=== PATIENT | male | born 1995 | race Two or more races ===

== ENCOUNTER 2021-03-17 13:06 | Inpatient (IN) | payer MEDICAID, OTHER ==
[2021-03-17] VITALS (24 sets, daily range): BP systolic 81–111; BP diastolic 31–56
[~2021-03-17] VITALS: Ht 180.3 cm; Wt 106.8 kg
[2021-03-17] MEDS ORDERED: SODIUM CHLORIDE 0.9% 1,000 ML IVB ONE (13:45)
[2021-03-17 14:25] LABS: Basophils # (auto) 0 10 ^3/uL (0-0.2); Eosinophils # (auto) 0 10 ^3/uL (0-0.8); Hemoglobin 13.3 g/dL (13.5-17.5); Lymphocytes # (auto) 0.5 10 ^3/uL (0.4-5.4); Mean Corpuscular Hemoglobin 36.1 pg (28.0-32.0); Mean Corpuscular Hgb Conc. 34.3 g/dL (32.0-36.0); Monocytes # (auto) 0 10 ^3/uL (0-1.3); Neutrophils # (auto) 0.2 10 ^3/uL (1.6-8.6)
[2021-03-17 14:27] LABS: Basophils % (auto) 0.6 % (0.0-2.0); Eosinophils % (auto) 2.6 % (0.0-7.0); Hematocrit 38.7 % (41.0-53.0); Mean Corpuscular Volume 105.3 fL (80.0-100.0); Monocytes % (auto) 1.3 % (0.0-12.0); Neutrophils % (auto) 25.3 % (37.0-80.0); Platelet Count (auto) 41 10^3/uL (140-450); Red Blood Cells 3.67 10^6/uL (4.5-5.90); Red Cell Distribution Width 14.4 % (11.8-14.3)
[2021-03-17 14:32] LABS: Lymphocytes % (auto) 70.2 % (10.0-50.0)
[2021-03-17 14:37] LABS: White Blood Cell 0.7 10^3/uL (4.4-10.8)
[2021-03-17] MEDS ORDERED: ONDANSETRON HCL 4 MG/2 ML VIAL ONE (14:41)
[2021-03-17 14:44] LABS: Albumin 2.4 g/dL (3.4-5.0); Calcium 7.9 mg/dL (8.5-10.1); Magnesium 1.7 mg/dL (1.6-2.6); Potassium 3.2 mmol/L (3.5-5.1)
[2021-03-17 14:47] LABS: BUN/Creatinine Ratio 26.3; Bilirubin, Total 0.9 mg/dL (0.2-1.0); Total Protein 4.9 g/dL (6.4-8.2)
[2021-03-17 14:48] LABS: INR 1.36 (0.9-1.15); Partial Thromboplastin Time 30.2 sec (23.0-31.2)
[2021-03-17] MEDS ORDERED: PANTOPRAZOLE 40 MG/10 ML VIAL INJ IV ONE (15:30)
[2021-03-17] MEDS ORDERED: ONDANSETRON HCL 4 MG/2 ML VIAL IV ONE (15:30)
[2021-03-17] MEDS ORDERED: NOREPINEPHRINE 8 MG/250ML KIT 250 ML IV ONE ×2 (16:42→17:05)
[2021-03-17] MEDS ORDERED: VANCOMYCIN PER PHARMACY 0 MG IV SCH (17:00)
[2021-03-17] MEDS ORDERED: NITROGLYCERIN 0.4 MG SL TAB SL PRN (17:00)
[2021-03-17] MEDS ORDERED: D5W/LACTATED RINGERS 1,000 ML IV SCH (17:00)
[2021-03-17] MEDS ORDERED: ONDANSETRON HCL 4 MG/2 ML VIAL IV PRN (17:00)
[2021-03-17] MEDS ORDERED: NOREPINEPHRINE 8 MG/250ML KIT 250 ML IV SCH ×2 (17:00)
[2021-03-17] MEDS ORDERED: MORPHINE SULF INJ 2 MG/ML SYRINGE 1ML IV PRN (17:00)
[2021-03-17] MEDS ORDERED: VANCOMYCIN 1GM/250ML 250 ML IV ONE (17:30)
[2021-03-17] MEDS: MAGNESIUM SULFATE 1GM/100ML 100 ML IV SCH ×3 (19:00→23:55)
[2021-03-17] MEDS: POTASSIUM CHL 20MEQ/100ML 100 ML IV SCH ×2 (19:00→21:57)
[2021-03-17] MEDS ORDERED: DEXA4TAB PO (19:39)
[2021-03-17] MEDS ORDERED: GABA-339 PO (19:39)
[2021-03-17] MEDS ORDERED: FLUC200T50 PO (19:39)
[2021-03-17] MEDS ORDERED: CALC500C3 PO (19:39)
[2021-03-17] MEDS ORDERED: AMIT10TA6 PO (19:39)
[2021-03-17] MEDS ORDERED: MAGN84TA4 PO (19:44)
[2021-03-17] MEDS ORDERED: INSU100I43 SC (19:44)
[2021-03-17] MEDS ORDERED: OLAN1TAB19 PO (19:44)
[2021-03-17] MEDS ORDERED: LORA0.5T20 PO (19:44)
[2021-03-17] MEDS ORDERED: INSLANTI SC (19:44)
[2021-03-17] MEDS ORDERED: MERC50TA PO (19:44)
[2021-03-17] MEDS ORDERED: LEVO-253 PO (19:44)
[2021-03-17] MEDS ORDERED: ONDA-144 PO (19:47)
[2021-03-17] MEDS ORDERED: POTA10TA51 PO (19:47)
[2021-03-17] MEDS ORDERED: URSO300C9 PO (19:47)
[2021-03-17] MEDS ORDERED: POLY33504 PO (19:47)
[2021-03-17] MEDS ORDERED: SUM25T PO (19:47)
[2021-03-17] MEDS ORDERED: OXY5T PO (19:47)
[2021-03-17] MEDS ORDERED: PANT40TA2 PO (19:47)
[2021-03-17] MEDS: FAMOTIDINE (10MG/ML) 2ML VL IV SCH (21:11)
[2021-03-17] MEDS: PIPERACILLIN-TAZOB 3.375GM 100 ML IV SCH (21:11)
[2021-03-17] MEDS ORDERED: DEXTROSE (50%) 50ML SYRG IV PRN (22:45)
[2021-03-17 22:51] LABS: Lactic Acid w/Reflex 4.1 mmol/L (0.4-2.0)
[2021-03-17] MEDS: LACTATED RINGER'S 1,000 ML IV SCH (23:13)
[2021-03-18] VITALS (53 sets, daily range): BP systolic 86–134; BP diastolic 43–83
[2021-03-18] MEDS: ACCU-CHEK COMFORT CURVE STRIP VI SCH ×5 (00:07→23:44)
[2021-03-18] MEDS ORDERED: MAGNESIUM SULFATE 1GM/100ML 100 ML IV ONE (00:29)
[2021-03-18] MEDS: MAGNESIUM SULFATE 1GM/100ML 100 ML IV SCH (00:37)
[2021-03-18] MEDS: KETOROLAC TROMETH 30 MG/ML 1ML VIAL IV PRN ×2 (01:23→23:47)
[2021-03-18] MEDS ORDERED: ONDANSETRON HCL 4 MG/2 ML VIAL IV PRN (03:15)
[2021-03-18] MEDS: PIPERACILLIN-TAZOB 3.375GM 100 ML IV SCH ×4 (03:27→20:34)
[2021-03-18] MEDS: NOREPINEPHRINE 8 MG/250ML KIT 250 ML IV SCH (03:28)
[2021-03-18 04:24] LABS: Basophils # (auto) 0 10 ^3/uL (0-0.2); Basophils % (auto) 0.3 % (0.0-2.0); Eosinophils # (auto) 0 10 ^3/uL (0-0.8); Eosinophils % (auto) 2.2 % (0.0-7.0); Hematocrit 41.3 % (41.0-53.0); Hemoglobin 14.2 g/dL (13.5-17.5); Lymphocytes # (auto) 0.3 10 ^3/uL (0.4-5.4); Lymphocytes % (auto) 35.7 % (10.0-50.0); Mean Corpuscular Hemoglobin 35.7 pg (28.0-32.0); Mean Corpuscular Hgb Conc. 34.4 g/dL (32.0-36.0); Mean Corpuscular Volume 103.9 fL (80.0-100.0); Monocytes # (auto) 0.1 10 ^3/uL (0-1.3); Neutrophils # (auto) 0.4 10 ^3/uL (1.6-8.6); Neutrophils % (auto) 47.8 % (37.0-80.0); Nucleated Red Blood Cells % 3.1 %; Red Blood Cells 3.97 10^6/uL (4.5-5.90); Red Cell Distribution Width 14.8 % (11.8-14.3)
[2021-03-18 04:31] LABS: White Blood Cell 0.9 10^3/uL (4.4-10.8)
[2021-03-18 04:50] LABS: Platelet Count (auto) 59 10^3/uL (140-450)
[2021-03-18] MEDS: LACTATED RINGER'S 1,000 ML IV SCH ×3 (05:36→15:00)
[2021-03-18] MEDS ORDERED: DEXTROSE (50%) 50ML SYRG IV ONE (06:00)
[2021-03-18] MEDS: InsuLIN REG 1unit/0.01ml Soln (100units/ml) SC SCH ×5 (06:00→23:47)
[2021-03-18] MEDS ORDERED: InsuLIN REG 1unit/0.01ml Soln (100units/ml) IV ONE (06:00)
[2021-03-18] MEDS ORDERED: CALCIUM GLUC 1,000mg/50ml-NS 50 ML IV ONE (06:00)
[2021-03-18] MEDS ORDERED: SODIUM BICARBONATE 8.4 % INJ 50ML VIAL IV ONE (06:00)
[2021-03-18 07:20] LABS: BUN/Creatinine Ratio 29.9; Calcium 7.5 mg/dL (8.5-10.1); Potassium 4.3 mmol/L (3.5-5.1)
[2021-03-18] MEDS ORDERED: POLYETHYLENE GLYCOL 17 GM PWDR PO PRN (08:15)
[2021-03-18] MEDS ORDERED: OLANZapine 5 MG TAB PO SCH (08:15)
[2021-03-18] MEDS ORDERED: CALCIUM CARB 500 MG CHEW TAB PO PRN (08:15)
[2021-03-18] MEDS ORDERED: oxyCODONE ER 10 MG TAB PO PRN (08:15)
[2021-03-18] MEDS ORDERED: LORazepam 0.5 MG TAB PO PRN (08:15)
[2021-03-18] MEDS: ACETAMINOPHEN 325 MG TAB PO PRN (08:22)
[2021-03-18] MEDS: PANTOPRAZOLE 40 MG TAB PO SCH (10:01)
[2021-03-18] MEDS: FLUCONAZOLE 100 MG TAB PO SCH (10:01)
[2021-03-18] MEDS: FAMOTIDINE (10MG/ML) 2ML VL IV SCH (10:01)
[2021-03-18] MEDS: FILGRASTIM(TBO) 480 MCG/0.8 ML SYRG SC SCH (10:02)
[2021-03-18] MEDS ORDERED: LEVOCARNITINE 990 MG PO SCH (11:00)
[2021-03-18] MEDS: VANCOMYCIN 1GM/250ML 250 ML IV SCH ×2 (11:18→18:43)
[2021-03-18] MEDS: URSODIOL 300 MG CAP PO SCH ×2 (12:16→21:42)
[2021-03-18] MEDS: GABAPENTIN 300 MG CAP PO SCH ×2 (13:54→21:42)
[2021-03-18] MEDS: AMITRIPTYLINE HCL 10 MG TAB PO SCH (21:42)
[2021-03-18] MEDS: OLANZapine 5 MG TAB PO SCH (21:43)
[2021-03-19] VITALS (29 sets, daily range): BP systolic 89–111; BP diastolic 43–70
[2021-03-19] MEDS: LACTATED RINGER'S 1,000 ML IV SCH ×3 (01:47→23:25)
[2021-03-19] MEDS: PIPERACILLIN-TAZOB 3.375GM 100 ML IV SCH ×3 (01:56→13:36)
[2021-03-19] MEDS: NOREPINEPHRINE 8 MG/250ML KIT 250 ML IV SCH (03:15)
[2021-03-19] MEDS: VANCOMYCIN 1GM/250ML 250 ML IV SCH ×2 (03:31→11:26)
[2021-03-19 04:06] LABS: Urine Bacteria FEW /hpf (None Seen); Urine Blood Negative /uL (Negative); Urine Specific Gravity 1.014 (1.001-1.035); Urine WBC 2 /hpf (0 - 3)
[2021-03-19 05:04] LABS: BUN/Creatinine Ratio 26.4; Calcium 7.5 mg/dL (8.5-10.1); Potassium 3.4 mmol/L (3.5-5.1)
[2021-03-19 05:21] LABS: Basophils # (auto) 0 10 ^3/uL (0-0.2); Basophils % (auto) 0.4 % (0.0-2.0); Eosinophils # (auto) 0 10 ^3/uL (0-0.8); Eosinophils % (auto) 0.9 % (0.0-7.0); Hematocrit 31.2 % (41.0-53.0); Lymphocytes # (auto) 0.3 10 ^3/uL (0.4-5.4); Lymphocytes % (auto) 61.2 % (10.0-50.0); Mean Corpuscular Hemoglobin 36.6 pg (28.0-32.0); Mean Corpuscular Hgb Conc. 35.3 g/dL (32.0-36.0); Mean Corpuscular Volume 103.8 fL (80.0-100.0); Monocytes # (auto) 0.1 10 ^3/uL (0-1.3); Monocytes % (auto) 17.1 % (0.0-12.0); Neutrophils # (auto) 0.1 10 ^3/uL (1.6-8.6); Neutrophils % (auto) 20.4 % (37.0-80.0); Nucleated Red Blood Cells % 2.4 %; Platelet Count (auto) 22 10^3/uL (140-450); Red Cell Distribution Width 14.8 % (11.8-14.3)
[2021-03-19 05:24] LABS: White Blood Cell 0.6 10^3/uL (4.4-10.8)
[2021-03-19] MEDS: ACCU-CHEK COMFORT CURVE STRIP VI SCH ×4 (06:19→23:28)
[2021-03-19] MEDS: InsuLIN REG 1unit/0.01ml Soln (100units/ml) SC SCH ×4 (06:20→23:39)
[2021-03-19] MEDS: GABAPENTIN 300 MG CAP PO SCH ×3 (06:21→23:27)
[2021-03-19] MEDS: PANTOPRAZOLE 40 MG TAB PO SCH (09:13)
[2021-03-19] MEDS: oxyCODONE HCL 5MG TAB PO PRN (09:14)
[2021-03-19] MEDS: FILGRASTIM(TBO) 480 MCG/0.8 ML SYRG SC SCH (09:14)
[2021-03-19] MEDS: FLUCONAZOLE 100 MG TAB PO SCH (09:14)
[2021-03-19] MEDS: URSODIOL 300 MG CAP PO SCH ×2 (09:21→23:26)
[2021-03-19] MEDS: LEVOCARNITINE 330 MG TAB PO SCH (09:22)
[2021-03-19 10:52] LABS: Basophils # (auto) 0 10 ^3/uL (0-0.2); Eosinophils # (auto) 0 10 ^3/uL (0-0.8); Hemoglobin 11.1 g/dL (13.5-17.5); Lymphocytes # (auto) 0.2 10 ^3/uL (0.4-5.4); Mean Corpuscular Volume 104.2 fL (80.0-100.0); Monocytes # (auto) 0.1 10 ^3/uL (0-1.3); Neutrophils # (auto) 0.1 10 ^3/uL (1.6-8.6)
[2021-03-19 10:55] LABS: Basophils % (auto) 1.8 % (0.0-2.0); Eosinophils % (auto) 1.8 % (0.0-7.0); Lymphocytes % (auto) 45.9 % (10.0-50.0); Mean Corpuscular Hemoglobin 36.2 pg (28.0-32.0); Mean Corpuscular Hgb Conc. 34.7 g/dL (32.0-36.0); Neutrophils % (auto) 25.7 % (37.0-80.0); Nucleated Red Blood Cells % 2.3 %; Red Blood Cells 3.07 10^6/uL (4.5-5.90)
[2021-03-19 10:57] LABS: Monocytes % (auto) 24.8 % (0.0-12.0)
[2021-03-19 11:00] LABS: Platelet Count (auto) 19 10^3/uL (140-450)
[2021-03-19 11:01] LABS: White Blood Cell 0.5 10^3/uL (4.4-10.8)
[2021-03-19 11:06] LABS: Lactic Acid w/Reflex 2.6 mmol/L (0.4-2.0); Potassium 3.5 mmol/L (3.5-5.1)
[2021-03-19 11:10] LABS: BUN/Creatinine Ratio 31.1; Calcium 7.5 mg/dL (8.5-10.1)
[2021-03-19] MEDS: CEFEPIME 1 GM in NS 0.9% 50 ML IV SCH (23:25)
[2021-03-19] MEDS: AMITRIPTYLINE HCL 10 MG TAB PO SCH (23:27)
[2021-03-19] MEDS: OLANZapine 5 MG TAB PO SCH (23:27)
[2021-03-20] MEDS: InsuLIN REG 1unit/0.01ml Soln (100units/ml) SC SCH ×4 (02:02→17:55)
[2021-03-20 04:54] VITALS: BP 116/70
[2021-03-20] MEDS: CEFEPIME 1 GM in NS 0.9% 50 ML IV SCH ×3 (05:54→22:16)
[2021-03-20] MEDS: ACCU-CHEK COMFORT CURVE STRIP VI SCH ×3 (05:54→17:53)
[2021-03-20] MEDS: GABAPENTIN 300 MG CAP PO SCH ×3 (05:54→22:16)
[2021-03-20] MEDS: LACTATED RINGER'S 1,000 ML IV SCH ×2 (06:18→17:00)
[2021-03-20 07:40] LABS: Basophils # (auto) 0 10 ^3/uL (0-0.2); Basophils % (auto) 0.6 % (0.0-2.0); Eosinophils # (auto) 0 10 ^3/uL (0-0.8); Eosinophils % (auto) 2.5 % (0.0-7.0); Hematocrit 25.2 % (41.0-53.0); Hemoglobin 8.6 g/dL (13.5-17.5); Lymphocytes # (auto) 0.3 10 ^3/uL (0.4-5.4); Lymphocytes % (auto) 45.6 % (10.0-50.0); Mean Corpuscular Hemoglobin 35.6 pg (28.0-32.0); Mean Corpuscular Hgb Conc. 34.1 g/dL (32.0-36.0); Mean Corpuscular Volume 104.3 fL (80.0-100.0); Monocytes # (auto) 0.2 10 ^3/uL (0-1.3); Neutrophils # (auto) 0.1 10 ^3/uL (1.6-8.6); Neutrophils % (auto) 16.7 % (37.0-80.0); Nucleated Red Blood Cells % 1.2 %; Red Blood Cells 2.42 10^6/uL (4.5-5.90); Red Cell Distribution Width 14.4 % (11.8-14.3)
[2021-03-20 07:41] LABS: Monocytes % (auto) 34.6 % (0.0-12.0)
[2021-03-20 07:43] LABS: Platelet Count (auto) 17 10^3/uL (140-450); White Blood Cell 0.7 10^3/uL (4.4-10.8)
[2021-03-20 09:00] VITALS: BP 105/61
[2021-03-20] MEDS: PANTOPRAZOLE 40 MG TAB PO SCH (10:53)
[2021-03-20] MEDS: FLUCONAZOLE 100 MG TAB PO SCH (10:53)
[2021-03-20] MEDS: oxyCODONE HCL 5MG TAB PO PRN ×2 (10:54→17:53)
[2021-03-20] MEDS: URSODIOL 300 MG CAP PO SCH ×2 (11:39→22:16)
[2021-03-20] MEDS: LEVOCARNITINE 330 MG TAB PO SCH (11:39)
[2021-03-20] MEDS: FILGRASTIM(TBO) 480 MCG/0.8 ML SYRG SC SCH (11:40)
[2021-03-20 13:00] VITALS: BP 115/73
[2021-03-20 16:51] VITALS: BP 119/70
[2021-03-20 22:00] VITALS: BP 122/72
[2021-03-20] MEDS: AMITRIPTYLINE HCL 10 MG TAB PO SCH (22:16)
[2021-03-20] MEDS: OLANZapine 5 MG TAB PO SCH (22:16)
[2021-03-20] MEDS: ACETAMINOPHEN 325 MG TAB PO PRN (22:26)
[2021-03-20] MEDS: CHOLESTYRAMINE 4 GM POWDER PO SCH (23:50)
[2021-03-21] MEDS: ACCU-CHEK COMFORT CURVE STRIP VI SCH ×4 (00:30→17:32)
[2021-03-21] MEDS: InsuLIN REG 1unit/0.01ml Soln (100units/ml) SC SCH ×4 (00:40→17:32)
[2021-03-21] MEDS: LACTATED RINGER'S 1,000 ML IV SCH (03:00)
[2021-03-21 05:00] VITALS: BP 99/59
[2021-03-21] MEDS: CEFEPIME 1 GM in NS 0.9% 50 ML IV SCH ×2 (06:02→14:00)
[2021-03-21] MEDS: GABAPENTIN 300 MG CAP PO SCH ×2 (06:02→14:00)
[2021-03-21 06:31] LABS: Hemoglobin 11.8 g/dL (13.5-17.5); White Blood Cell 3.9 10^3/uL (4.4-10.8)
[2021-03-21 06:32] LABS: Hematocrit 33.7 % (41.0-53.0); Mean Corpuscular Hemoglobin 36.5 pg (28.0-32.0); Mean Corpuscular Hgb Conc. 34.9 g/dL (32.0-36.0); Mean Corpuscular Volume 104.7 fL (80.0-100.0); Platelet Count (auto) 30 10^3/uL (140-450); Red Blood Cells 3.22 10^6/uL (4.5-5.90); Red Cell Distribution Width 14.4 % (11.8-14.3)
[2021-03-21 06:47] LABS: Basophils % (manual) 0 (0.0-2.0); Eosinophils % (manual) 0 (0-7); Metamyelocytes % 0; Promyelocytes % 0
[2021-03-21] MEDS: CHOLESTYRAMINE 4 GM POWDER PO SCH ×2 (07:10→14:39)
[2021-03-21 07:51] LABS: Band Neutrophils % (manual) 19; Blast Cells 1; Lymphocytes % (manual) 41 (10.0-50.0); Monocytes % (manual) 30 (0-12); Myelocytes % 1; Reactive Lymphocytes 2
[2021-03-21 09:00] VITALS: BP 121/73
[2021-03-21] MEDS: URSODIOL 300 MG CAP PO SCH (10:17)
[2021-03-21] MEDS: LEVOCARNITINE 330 MG TAB PO SCH (10:17)
[2021-03-21] MEDS: PANTOPRAZOLE 40 MG TAB PO SCH (10:17)
[2021-03-21] MEDS: FLUCONAZOLE 100 MG TAB PO SCH (10:17)
[2021-03-21] MEDS: oxyCODONE HCL 5MG TAB PO PRN ×2 (10:18→16:37)
[2021-03-21] MEDS ORDERED: CHL4PW PO (10:48)
[2021-03-21 13:00] VITALS: BP 122/78
== END 2021-03-21 17:40 | disposition home or self-care (01) | DRG 660 ==
LOC: EDBD 13:06 → ER 13:06 → UNDOADMIN 16:21 → TELE 16:21 → OVERFLOW 16:48 → ICU WEST 18:02 → WEST WING 03-19 21:21
PROVIDERS: ADMIT Hospitalist; ATTEND Hospitalist
DX: D61.810 Antineoplastic chemotherapy induced pancytopenia (principal); C91.00 Acute lymphoblastic leukemia not having achieved remission; D69.6 Thrombocytopenia, unspecified; I95.9 Hypotension, unspecified; R65.10 Systemic inflammatory response syndrome (SIRS) of non-infectious origin without acute organ dysfunction; M48.54XA Collapsed vertebra, not elsewhere classified, thoracic region, initial encounter for fracture; E44.1 Mild protein-calorie malnutrition; E86.0 Dehydration; M54.5 Low back pain; Z20.822 Contact with and (suspected) exposure to COVID-19; T45.1X5A Adverse effect of antineoplastic and immunosuppressive drugs, initial encounter; Z82.49 Family history of ischemic heart disease and other diseases of the circulatory system
CPT/HCPCS: 36415; 70450; 71045; 72128; 72131; 74176; 80048; 80053; 80202; 81001; 82565; 82962; 83605; 83690; 83735; 85007; 85025; 85027; 85610; 85730; 87040; 87081; 87086; 87426; 96361; 96365; 96366; 96375; 97110; 97116; 97530; 99291; C9113; G0378; J1447; J1642; J1815; J1885; J2405; J2543; J3480; J3490

== ENCOUNTER 2021-04-12 21:57 | Inpatient (IN) | payer MEDICAID ==
[~2021-04-12] VITALS: Ht 175.3 cm; Wt 89.2 kg
[~2021-04-12 21:57] MED LIST: AMIT1TAB34 PO; CALC500C3 PO; CHL4PW PO; DEXA4TAB PO; FLUC200T50 PO; GABA-339 PO; INSLANTI SC; INSU100I43 SC; LEVO-253 PO; LORA0.5T20 PO; MAGN84TA4 PO; MERC50TA PO; OLAN1TAB19 PO; ONDA-144 PO; OXY5T PO; PANT40TA2 PO; POLY33504 PO; POTA10TA51 PO; SUM25T PO; URSO300C9 PO
[2021-04-12 22:30] LABS: Basophils # (auto) 0 10 ^3/uL (0-0.2); Eosinophils # (auto) 0 10 ^3/uL (0-0.8); Hemoglobin 9.7 g/dL (13.5-17.5); Lymphocytes # (auto) 0.2 10 ^3/uL (0.4-5.4); Mean Corpuscular Hgb Conc. 35.5 g/dL (32.0-36.0); Monocytes # (auto) 0 10 ^3/uL (0-1.3); Neutrophils # (auto) 0 10 ^3/uL (1.6-8.6)
[2021-04-12 22:32] LABS: Hematocrit 27.2 % (41.0-53.0); Mean Corpuscular Hemoglobin 34.9 pg (28.0-32.0); Mean Corpuscular Volume 98.4 fL (80.0-100.0); Monocytes % (auto) 0.7 % (0.0-12.0); Neutrophils % (auto) 2.1 % (37.0-80.0); Nucleated Red Blood Cells % 0.4 %; Red Blood Cells 2.77 10^6/uL (4.5-5.90); Red Cell Distribution Width 14.3 % (11.8-14.3)
[2021-04-12 22:43] LABS: Lymphocytes % (auto) 96.2 % (10.0-50.0)
[2021-04-12 22:45] LABS: White Blood Cell 0.2 10^3/uL (4.4-10.8)
[2021-04-12] MEDS ORDERED: SODIUM CHLORIDE 0.9% 1,000 ML IV ONE (22:45)
[2021-04-12 22:49] LABS: Calcium 7.8 mg/dL (8.5-10.1); Potassium 3.6 mmol/L (3.5-5.1)
[2021-04-12 22:51] LABS: BUN/Creatinine Ratio 17.9
[2021-04-12 22:52] LABS: Lactic Acid w/Reflex 3.8 mmol/L (0.4-2.0)
[2021-04-12 22:54] LABS: Bilirubin, Total 1.1 mg/dL (0.2-1.0); Total Protein 5.5 g/dL (6.4-8.2)
[2021-04-13] MEDS ORDERED: PIPERACILLIN-TAZOB 3.375GM 100 ML IV ONE (00:15)
[2021-04-13] MEDS ORDERED: SODIUM CHLORIDE 0.9% 1,500 ML IV ONE (00:15)
[2021-04-13] MEDS ORDERED: VANCOMYCIN 1GM/250ML 250 ML IV ONE (00:15)
[2021-04-13] MEDS ORDERED: ACETAMINOPHEN 325 MG TAB PO ONE ×2 (01:00→10:00)
[2021-04-13] MEDS ORDERED: KETOROLAC TROMETH 30 MG/ML 1ML VIAL IV ONE (03:00)
[2021-04-13 03:18] LABS: Urine Bacteria FEW /hpf (None Seen); Urine Blood Negative /uL (Negative); Urine Hyaline Cast FEW /lpf (0 - 2); Urine Mucus FEW (None Seen); Urine Specific Gravity 1.016 (1.001-1.035); Urine WBC 1 /hpf (0 - 3)
[2021-04-13] MEDS ORDERED: NITROGLYCERIN 0.4 MG SL TAB SL PRN (10:45)
[2021-04-13] MEDS ORDERED: MORPHINE SULFATE INJECTION 2 MG/ML SYRG IV PRN ×2 (10:45→11:00)
[2021-04-13] MEDS ORDERED: FILGRASTIM(TBO) 480 MCG/0.8 ML SYRG SC ONE (11:00)
[2021-04-13] MEDS ORDERED: LACTATED RINGER'S 1,000 ML IV ONE (11:00)
[2021-04-13] MEDS: LACTATED RINGER'S 1,000 ML IV SCH ×2 (11:23→21:40)
[2021-04-13 13:40] LABS: INR 1.27 (0.9-1.15); Partial Thromboplastin Time 37.4 sec (23.0-31.2)
[2021-04-13 13:44] LABS: Lactic Acid w/Reflex 3.1 mmol/L (0.4-2.0)
[2021-04-13] MEDS: CEFEPIME 1 GM in SODIUM CHL 0.9% 50 ML IV SCH ×2 (14:50→23:11)
[2021-04-13] MEDS: KETOROLAC TROMETH 30 MG/ML 1ML VIAL IV PRN (19:33)
[2021-04-13] MEDS: ONDANSETRON HCL 4 MG/2 ML VIAL IV PRN (20:31)
[2021-04-14] VITALS (7 sets, daily range): BP systolic 113–130; BP diastolic 59–80
[2021-04-14 06:42] LABS: Basophils # (auto) 0 10 ^3/uL (0-0.2); Eosinophils # (auto) 0 10 ^3/uL (0-0.8); Eosinophils % (auto) 7.8 % (0.0-7.0); Hematocrit 21.7 % (41.0-53.0); Hemoglobin 7.6 g/dL (13.5-17.5); Lymphocytes # (auto) 0.1 10 ^3/uL (0.4-5.4); Mean Corpuscular Hemoglobin 34.2 pg (28.0-32.0); Mean Corpuscular Hgb Conc. 34.9 g/dL (32.0-36.0); Mean Corpuscular Volume 97.9 fL (80.0-100.0); Monocytes # (auto) 0 10 ^3/uL (0-1.3); Monocytes % (auto) 1.8 % (0.0-12.0); Neutrophils # (auto) 0 10 ^3/uL (1.6-8.6); Neutrophils % (auto) 4.8 % (37.0-80.0); Nucleated Red Blood Cells % 0.8 %; Red Blood Cells 2.22 10^6/uL (4.5-5.90); Red Cell Distribution Width 13.9 % (11.8-14.3)
[2021-04-14 06:45] LABS: Albumin 1.6 g/dL (3.4-5.0); BUN/Creatinine Ratio 21.3; Calcium 7.6 mg/dL (8.5-10.1); Potassium 3.6 mmol/L (3.5-5.1)
[2021-04-14 06:48] LABS: Bilirubin, Total 0.5 mg/dL (0.2-1.0); Total Protein 4.7 g/dL (6.4-8.2)
[2021-04-14 06:53] LABS: Lymphocytes % (auto) 85.6 % (10.0-50.0)
[2021-04-14 06:59] LABS: White Blood Cell 0.1 10^3/uL (4.4-10.8)
[2021-04-14] MEDS: ACETAMINOPHEN 325 MG TAB PO PRN ×3 (07:34→23:00)
[2021-04-14] MEDS: ONDANSETRON HCL 4 MG/2 ML VIAL IV PRN ×2 (07:50→23:00)
[2021-04-14] MEDS: LACTATED RINGER'S 1,000 ML IV SCH ×3 (07:51→19:30)
[2021-04-14] MEDS: CEFEPIME 1 GM in SODIUM CHL 0.9% 50 ML IV SCH ×3 (07:51→23:13)
[2021-04-14] MEDS: KETOROLAC TROMETH 30 MG/ML 1ML VIAL IV PRN ×2 (09:06→23:00)
[2021-04-14] MEDS ORDERED: FILGRASTIM(TBO) 480 MCG/0.8 ML SYRG SC SCH (10:00)
[2021-04-14] MEDS: FILGRASTIM(TBO) 480 MCG/0.8 ML SYRG SC SCH (10:14)
[2021-04-14] MEDS: FAMOTIDINE 20 MG TAB PO SCH (10:15)
[2021-04-14] MEDS ORDERED: VANCOMYCIN PER PHARMACY 0 MG IV SCH (12:45)
[2021-04-14] MEDS ORDERED: ACETAMINOPHEN 500 MG TAB PO ONE (12:45)
[2021-04-14] MEDS ORDERED: LORATADINE 10 MG TAB PO ONE (12:45)
[2021-04-14 16:03] LABS: Alcohol, Urine < 3.0 mg/dL (0-10); Amphetamine Screen, Urine NEGATIVE (NEGATIVE); Barbiturate Scree,Urine NEGATIVE (NEGATIVE); Benzodiazephine Screen, Urine NEGATIVE (NEGATIVE); Cannabinoid Screen, Urine NEGATIVE (NEGATIVE); Cocaine Screen, Urine NEGATIVE (NEGATIVE); Opiate Scree,Urine NEGATIVE (NEGATIVE); Phencyclidine Screen, Urine NEGATIVE (NEGATIVE)
[2021-04-14] MEDS: VANCOMYCIN 1GM/250ML 250 ML IV SCH (16:08)
[2021-04-15] VITALS (7 sets, daily range): BP systolic 98–138; BP diastolic 55–86
[2021-04-15] MEDS: LACTATED RINGER'S 1,000 ML IV SCH ×3 (03:09→19:00)
[2021-04-15 06:22] LABS: Basophils # (auto) 0 10 ^3/uL (0-0.2); Eosinophils # (auto) 0 10 ^3/uL (0-0.8); Hematocrit 23.4 % (41.0-53.0); Hemoglobin 8.4 g/dL (13.5-17.5); Lymphocytes # (auto) 0.2 10 ^3/uL (0.4-5.4); Monocytes # (auto) 0 10 ^3/uL (0-1.3); Monocytes % (auto) 1.2 % (0.0-12.0); Neutrophils # (auto) 0 10 ^3/uL (1.6-8.6)
[2021-04-15 06:26] LABS: Lymphocytes % (auto) 96.4 % (10.0-50.0); Mean Corpuscular Hemoglobin 35.3 pg (28.0-32.0); Mean Corpuscular Hgb Conc. 35.9 g/dL (32.0-36.0); Mean Corpuscular Volume 98.1 fL (80.0-100.0); Neutrophils % (auto) 2.4 % (37.0-80.0); Nucleated Red Blood Cells % 0.5 %; Red Blood Cells 2.38 10^6/uL (4.5-5.90)
[2021-04-15 06:35] LABS: Calcium 7.9 mg/dL (8.5-10.1)
[2021-04-15] MEDS: CEFEPIME 1 GM in SODIUM CHL 0.9% 50 ML IV SCH ×3 (06:35→23:43)
[2021-04-15 06:52] LABS: Albumin 1.8 g/dL (3.4-5.0); BUN/Creatinine Ratio 27.3; Bilirubin, Total 0.6 mg/dL (0.2-1.0)
[2021-04-15 06:57] LABS: White Blood Cell 0.2 10^3/uL (4.4-10.8)
[2021-04-15] MEDS ORDERED: POTASSIUM CHL 20 Meq TABLET PO ONE (09:45)
[2021-04-15] MEDS ORDERED: ACETAMINOPHEN 500 MG TAB PO ONE (09:45)
[2021-04-15] MEDS ORDERED: POTASSIUM CHLORIDE 20 MEQ, LIDOCAINE 1% (LOCAL ANESTH.) 2 ML in SODIUM CHL 0.9% 100 ML IV ONE (09:45)
[2021-04-15] MEDS: VANCOMYCIN 1GM/250ML 250 ML IV SCH ×3 (10:17→21:25)
[2021-04-15] MEDS: FAMOTIDINE 20 MG TAB PO SCH (10:23)
[2021-04-15] MEDS: ONDANSETRON HCL 4 MG/2 ML VIAL IV PRN ×2 (10:55→19:34)
[2021-04-15] MEDS: ACETAMINOPHEN 325 MG TAB PO PRN ×2 (10:56→19:34)
[2021-04-15] MEDS: FILGRASTIM(TBO) 480 MCG/0.8 ML SYRG SC SCH (10:59)
[2021-04-15] MEDS: MAGNESIUM SULFATE 1GM/100ML 100 ML IV SCH ×2 (12:30→13:30)
[2021-04-15] MEDS: KETOROLAC TROMETH 30 MG/ML 1ML VIAL IV PRN (19:34)
[2021-04-16] VITALS (11 sets, daily range): BP systolic 105–119; BP diastolic 54–73
[2021-04-16] MEDS: LACTATED RINGER'S 1,000 ML IV SCH ×3 (03:10→17:08)
[2021-04-16] MEDS: LOPERAMIDE HCL 2 MG CAP PO PRN ×2 (03:13→17:46)
[2021-04-16] MEDS: KETOROLAC TROMETH 30 MG/ML 1ML VIAL IV PRN ×2 (03:36→11:30)
[2021-04-16] MEDS: VANCOMYCIN 1GM/250ML 250 ML IV SCH ×2 (05:37→17:08)
[2021-04-16 06:35] LABS: Basophils # (auto) 0 10 ^3/uL (0-0.2); Eosinophils # (auto) 0 10 ^3/uL (0-0.8); Eosinophils % (auto) 0.6 % (0.0-7.0); Lymphocytes # (auto) 0.1 10 ^3/uL (0.4-5.4); Monocytes # (auto) 0 10 ^3/uL (0-1.3); Neutrophils # (auto) 0 10 ^3/uL (1.6-8.6)
[2021-04-16 06:37] LABS: Mean Corpuscular Hemoglobin 34.8 pg (28.0-32.0); Mean Corpuscular Hgb Conc. 36.2 g/dL (32.0-36.0); Mean Corpuscular Volume 96.1 fL (80.0-100.0); Monocytes % (auto) 3.7 % (0.0-12.0); Neutrophils % (auto) 0.3 % (37.0-80.0); Red Blood Cells 1.87 10^6/uL (4.5-5.90)
[2021-04-16 06:38] LABS: Lymphocytes % (auto) 95.4 % (10.0-50.0)
[2021-04-16 06:40] LABS: White Blood Cell 0.1 10^3/uL (4.4-10.8)
[2021-04-16 06:41] LABS: Hemoglobin 6.5 g/dL (13.5-17.5)
[2021-04-16] MEDS: FILGRASTIM(TBO) 480 MCG/0.8 ML SYRG SC SCH (10:30)
[2021-04-16] MEDS: CEFEPIME 1 GM in SODIUM CHL 0.9% 50 ML IV SCH ×4 (10:30→23:00)
[2021-04-16] MEDS: FAMOTIDINE 20 MG TAB PO SCH (10:30)
[2021-04-16] MEDS: ONDANSETRON HCL 4 MG/2 ML VIAL IV PRN ×2 (11:30→17:46)
[2021-04-16] MEDS ORDERED: IOHEXOL 300 MG/ML 100ML BOTTLE IJ ONE ×2 (14:40→23:44)
[2021-04-17] VITALS (10 sets, daily range): BP systolic 106–124; BP diastolic 50–88
[2021-04-17] MEDS: ONDANSETRON HCL 4 MG/2 ML VIAL IV PRN ×2 (00:50→11:09)
[2021-04-17] MEDS: KETOROLAC TROMETH 30 MG/ML 1ML VIAL IV PRN (01:17)
[2021-04-17] MEDS: LACTATED RINGER'S 1,000 ML IV SCH ×2 (01:19→11:10)
[2021-04-17] MEDS: VANCOMYCIN 1GM/250ML 250 ML IV SCH ×2 (02:16→11:36)
[2021-04-17 05:19] LABS: Basophils # (auto) 0 10 ^3/uL (0-0.2); Eosinophils # (auto) 0 10 ^3/uL (0-0.8); Lymphocytes # (auto) 0.1 10 ^3/uL (0.4-5.4); Monocytes # (auto) 0 10 ^3/uL (0-1.3); Neutrophils # (auto) 0 10 ^3/uL (1.6-8.6); Nucleated Red Blood Cells % 0.6 %; Red Blood Cells 2.05 10^6/uL (4.5-5.90)
[2021-04-17 05:21] LABS: Eosinophils % (auto) 1.7 % (0.0-7.0); Hematocrit 19.6 % (41.0-53.0); Mean Corpuscular Hemoglobin 34.3 pg (28.0-32.0); Mean Corpuscular Hgb Conc. 35.9 g/dL (32.0-36.0); Mean Corpuscular Volume 95.5 fL (80.0-100.0); Monocytes % (auto) 8.5 % (0.0-12.0); Neutrophils % (auto) 0.6 % (37.0-80.0); Red Cell Distribution Width 15.1 % (11.8-14.3)
[2021-04-17 05:34] LABS: Albumin 1.5 g/dL (3.4-5.0); Calcium 7.1 mg/dL (8.5-10.1); Potassium 3.1 mmol/L (3.5-5.1)
[2021-04-17 05:37] LABS: BUN/Creatinine Ratio 26.9; Bilirubin, Total 1.6 mg/dL (0.2-1.0); INR 1.18 (0.9-1.15); Partial Thromboplastin Time 56.1 sec (23.0-31.2); Total Protein 4.2 g/dL (6.4-8.2)
[2021-04-17 05:53] LABS: Lymphocytes % (auto) 89.2 % (10.0-50.0)
[2021-04-17 05:54] LABS: White Blood Cell 0.1 10^3/uL (4.4-10.8)
[2021-04-17] MEDS: CEFEPIME 1 GM in SODIUM CHL 0.9% 50 ML IV SCH (06:28)
[2021-04-17] MEDS ORDERED: POTASSIUM CHL 20MEQ/100ML 100 ML IV ONE (09:30)
[2021-04-17] MEDS: FAMOTIDINE 20 MG TAB PO SCH (09:38)
[2021-04-17] MEDS: ACETAMINOPHEN 325 MG TAB PO PRN (09:53)
[2021-04-17] MEDS ORDERED: FILGRASTIM(TBO) 480 MCG/0.8 ML SYRG SC SCH (10:00)
[2021-04-17] MEDS: LOPERAMIDE HCL 2 MG CAP PO PRN (11:09)
== END 2021-04-17 12:15 | disposition short-term general hospital (02) | DRG 720 ==
LOC: ER 21:57 → TELE 04-13 10:37 → DOU IN ICU 04-13 10:42
PROVIDERS: ADMIT Hospitalist; ATTEND Hospitalist
PROC: 30233N1 Transfusion of Nonautologous Red Blood Cells into Peripheral Vein, Percutaneous Approach (ICD-10-PCS; 2021-04-15)
PROC: 30233R1 Transfusion of Nonautologous Platelets into Peripheral Vein, Percutaneous Approach (ICD-10-PCS; principal; 2021-04-16)
PROC: 06HY33Z Insertion of Infusion Device into Lower Vein, Percutaneous Approach (ICD-10-PCS; 2021-04-16)
DX: A41.89 Other specified sepsis (principal); C91.00 Acute lymphoblastic leukemia not having achieved remission; D61.818 Other pancytopenia; D84.9 Immunodeficiency, unspecified; D70.9 Neutropenia, unspecified; Z20.822 Contact with and (suspected) exposure to COVID-19; E11.9 Type 2 diabetes mellitus without complications; E78.00 Pure hypercholesterolemia, unspecified; I08.0 Rheumatic disorders of both mitral and aortic valves; B96.89 Other specified bacterial agents as the cause of diseases classified elsewhere; Z82.49 Family history of ischemic heart disease and other diseases of the circulatory system; Z83.3 Family history of diabetes mellitus; Z83.42 Family history of familial hypercholesterolemia; Z88.8 Allergy status to other drugs, medicaments and biological substances; Z79.899 Other long term (current) drug therapy; Z80.1 Family history of malignant neoplasm of trachea, bronchus and lung; Z80.3 Family history of malignant neoplasm of breast; Z92.21 Personal history of antineoplastic chemotherapy; E44.1 Mild protein-calorie malnutrition
CPT/HCPCS: 36415; 71045; 74177; 80053; 80202; 80307; 81001; 82962; 83605; 85025; 85610; 85730; 86850; 86900; 86901; 86920; 87040; 87077; 87081; 87086; 87186; 87426; 87493; 93306; 96361; 96365; 96366; 96367; G0378; J1447; J1885; J2001; J2405; J2543; J3480

== ENCOUNTER 2023-06-01 08:48 | Emergency (ER) | payer MEDICARE, MEDICAID ==
[~2023-06-01] VITALS: Ht 172.7 cm; Wt 100.0 kg
[~2023-06-01 08:48] MED LIST changes: +AMIT10TA12 PO; -AMIT1TAB34 PO; -DEXA4TAB PO; +LORA-1121 PO; -LORA0.5T20 PO; +URSO300C2 PO; -URSO300C9 PO
[2023-06-01 09:16] VITALS: BP 130/79; PULSE 76; RESP 20; TEMP 97.9; O2SAT 97
[2023-06-01] MEDS ORDERED: HYDROcodone-ACET 5/325MG TAB PO ONE (09:30)
== END 2023-06-01 10:36 | disposition home or self-care (01) ==
LOC: ER 08:48
DX: S83.91XA Sprain of unspecified site of right knee, initial encounter (principal); E11.9 Type 2 diabetes mellitus without complications; Z88.6 Allergy status to analgesic agent; W22.8XXA Striking against or struck by other objects, initial encounter; Y93.89 Activity, other specified; Y92.89 Other specified places as the place of occurrence of the external cause; Y99.8 Other external cause status
CPT/HCPCS: 73562